=== PATIENT | male | born 1955 | race Caucasian/White ===

== ENCOUNTER 2019-06-22 10:38 | Inpatient (IN) | payer OTHER ==
[~2019-06-22] VITALS: Ht 182.9 cm; Wt 74.3 kg
--- NOTE | 2019-06-22 10:57 | NUR ---
david. report received from [facility]. pt c/o all qudrants abd pain with nausea x 4 days. 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 denies cp/sob. no cardiac hx. pt's aox4. resps even and unlabored. all monitors in place. clal light within reach. edmd at bedside to evaluate at this time. ekg done at bedside by emt.
--- NOTE | 2019-06-22 10:58 | NUR ---
pt to xray at this time.
--- NOTE | 2019-06-22 10:59 | NUR ---
pt refused medications at this time.
[2019-06-22] MEDS ORDERED: ONDANSETRON 2MG/ML, 2ML IVPush ONE (11:00)
[2019-06-22] MEDS ORDERED: SODIUM CHLORIDE FLUSH 10ML SYR IVF ONE (11:00)
--- NOTE | 2019-06-22 11:02 | NUR ---
iso cart placed d/t loose stool per pt.
[2019-06-22] MEDS: HYDROmorphone 2 MG/ML, 1ML IVPush PRN ×3 (11:08→18:35)
--- NOTE | 2019-06-22 11:08 | NUR ---
pt back to room from xray at this time.
--- NOTE | 2019-06-22 11:15 | NUR ---
urinal at bedside. pt awares of ua.
--- NOTE | 2019-06-22 11:29 | NUR ---
pt states"i can't pee now. i'll try one more time later." urinal at bedside.
[2019-06-22 11:34] LABS: MEAN CORPUSCULAR HEMOGLOBIN 30.8 pg (27.5-34.5); MEAN CORPUSCULAR VOLUME 93.3 fL (81-97); MEAN PLATELET VOLUME 7.3 fL (7.4-10.4); PLATELET COUNT 342 x10^3/uL (130-400); RED BLOOD COUNT 5.28 x10^6/uL (4.38-5.82); RED CELL DISTRIBUTION WIDTH 14.4 % (9.4-14.8)
[2019-06-22 11:38] LABS: ALANINE AMINOTRANSFERASE 15 U/L (12-78); ALBUMIN 3.3 g/dL (3.4-5.0); ANION GAP 9 mmol/L (5-15); CALCIUM 9.1 mg/dL (8.5-10.1); CHLORIDE 100 mmol/L (98-107); CREATININE 1.41 mg/dL (0.7-1.3)
[2019-06-22 11:43] LABS: ALKALINE PHOSPHATASE 80 U/L (45-117); BILIRUBIN,TOTAL 0.7 mg/dL (0.2-1.0); TOTAL PROTEIN 7.7 g/dL (6.4-8.2); TROPONIN I < 0.015 ng/mL (0.000-0.045)
--- NOTE | 2019-06-22 11:48 | NUR ---
pt resting in [facility]. pt's aox4. resps even and unlabored. all monitors in place. call light within reach.
--- NOTE | 2019-06-22 11:51 | NUR ---
CT ON HOLD FOR CODE NEURO PATIENT
--- NOTE | 2019-06-22 12:23 | NUR ---
pt provided urine sample at this time. ua sent.
[2019-06-22 12:42] LABS: BASOPHILS % (AUTO) 0 % (0-1); EOSINOPHILS # (AUTO) 0.02 x10^3/uL (0-0.4); EOSINOPHILS % (AUTO) 0 % (1-7); LYMPHOCYTES # (AUTO) 0.37 x10^3/uL (1-3.4); LYMPHOCYTES % (AUTO) 2 % (22-44); MD SCAN; MONOCYTES # (AUTO) 0.78 x10^3/uL (0.2-0.8); MONOCYTES % (AUTO) 5 % (2-9); NEUTROPHILS # (AUTO) 15.77 x10^3/uL (1.8-6.8); NEUTROPHILS % (AUTO) 93 % (42-75)
[2019-06-22 12:44] LABS: CULTURE INDICATED? YES; MICROSCOPIC INDICATED
--- NOTE | 2019-06-22 13:06 | NUR ---
pt resting in [facility]. pt's aox4. resps even and unlabored. all monitors in place. call light within reach.
--- NOTE | 2019-06-22 13:22 | NUR ---
TASK RN: PT SITTING UP IN [employer] [employer] NOTED. PWD. DENIES PAIN/NAUSEA OR NEEDS BP/SPO2/ECG MONITORING IN PLACE. SINUS TACH ON MONITOR. PT TO CT AT THIS TIME.
--- NOTE | 2019-06-22 13:44 | NUR ---
IV INFILTRATED- SENT BACK TO ER FOR NEW IV
--- NOTE | 2019-06-22 13:47 | NUR ---
TASK RN: PT RETURNED FROM CT. UNABLE TO COMPLETE SCAN PIV INFILTRATED. PRIMARY RN AWARE.
--- NOTE | 2019-06-22 13:56 | NUR ---
new piv est on l ac. pt tolerated well.
[2019-06-22] MEDS ORDERED: HYDROmorphone 2 MG/ML, 1ML ONE (13:59)
--- NOTE | 2019-06-22 14:04 | NUR ---
pt requesting pain med at this time. pt medicated per emar. pt tolerated well.
--- NOTE | 2019-06-22 14:25 | NUR ---
PT TO CT AT THIS TIME.
--- NOTE | 2019-06-22 14:41 | NUR ---
PT BACK TO ROOM FROM CT AT THIS TIME.
[2019-06-22] MEDS ORDERED: METRONIDAZOLE PMX 500MG/100ML 100 ML IVPB ONE (15:00)
[2019-06-22] MEDS ORDERED: CEFOTETAN PMX 1GM/50ML 50 ML IV ONE ×2 (15:00→16:00)
[2019-06-22] MEDS ORDERED: CEFOTETAN PMX 1GM/50ML 50 ML ONE (15:14)
[2019-06-22] MEDS ORDERED: METRONIDAZOLE PMX 500MG/100ML 100 ML ONE (15:14)
[2019-06-22] MEDS ORDERED: SODIUM CHLORIDE 0.9% 1,000 ML IV ONE (15:23)
--- NOTE | 2019-06-22 15:23 | NUR ---
abx infusing at this time after blood culture x 2 times. pt tolerated well.
--- NOTE | 2019-06-22 15:24 | NUR ---
hospitalist at bedside at this time.
[2019-06-22] MEDS ORDERED: SODIUM CHLORIDE 0.9% 1,000ML IVBOLUS ONE ×2 (15:30→16:00)
--- NOTE | 2019-06-22 15:32 | NUR ---
NS INFUSING AT THIS TIME. PT TOLERATED WELL.
[2019-06-22] MEDS ORDERED: ONDANSETRON 2MG/ML, 2ML IVPush PRN (16:00)
[2019-06-22] MEDS ORDERED: SODIUM CHLORIDE FLUSH 10ML SYR IVF PRN (16:00)
[2019-06-22] MEDS ORDERED: hydrALAzine 20 MG/ML, 1ML IVPush PRN (16:00)
[2019-06-22] MEDS ORDERED: OMNIPAQUE 350 MG/ML, 100ML BOTTLE ONE (16:43)
--- NOTE | 2019-06-22 16:50 | NUR ---
report given to lucien desai. all questions answered.
--- NOTE | 2019-06-22 16:58 | NUR ---
2nd ns bolus and 2nd abx infusing at this time. pt tolerated well.
[2019-06-22 19:24] VITALS: BP 156/86
[2019-06-22 19:55] VITALS: BP 96/70
[2019-06-22] MEDS: SODIUM CHLORIDE 0.9% 1,000 ML IV SCH (23:36)
[2019-06-23] MEDS: METRONIDAZOLE PMX 500MG/100ML 100 ML IV SCH ×5 (00:33→22:03)
[2019-06-23] MEDS: SODIUM CHLORIDE 0.9% 1,000 ML IV SCH ×2 (00:34→09:33)
[2019-06-23 01:35] VITALS: BP 134/79
[2019-06-23] MEDS: HYDROmorphone 2 MG/ML, 1ML IVPush PRN ×4 (02:55→17:40)
[2019-06-23] MEDS: ONDANSETRON ODT 4 MG PO PRN ×2 (03:01→10:10)
[2019-06-23] MEDS: CEFOTETAN PMX 2GM/50ML 50 ML IV SCH ×2 (04:32→16:47)
[2019-06-23 06:55] LABS: BASOPHILS % (AUTO) 0 % (0-1); EOSINOPHILS # (AUTO) 0.06 x10^3/uL (0-0.4); EOSINOPHILS % (AUTO) 0 % (1-7); LYMPHOCYTES # (AUTO) 0.58 x10^3/uL (1-3.4); LYMPHOCYTES % (AUTO) 4 % (22-44); MD NO; MEAN CORPUSCULAR HEMOGLOBIN 30.9 pg (27.5-34.5); MEAN CORPUSCULAR HGB CONC 33.4 g/dL (33.2-36.2); MEAN CORPUSCULAR VOLUME 92.6 fL (81-97); MEAN PLATELET VOLUME 7.4 fL (7.4-10.4); MONOCYTES # (AUTO) 0.91 x10^3/uL (0.2-0.8); MONOCYTES % (AUTO) 6 % (2-9); NEUTROPHILS # (AUTO) 12.91 x10^3/uL (1.8-6.8); NEUTROPHILS % (AUTO) 89 % (42-75); PLATELET COUNT 317 x10^3/uL (130-400); RED BLOOD COUNT 4.37 x10^6/uL (4.38-5.82); RED CELL DISTRIBUTION WIDTH 14.5 % (9.4-14.8)
[2019-06-23 07:03] LABS: ANION GAP 9 mmol/L (5-15); CALCIUM 8.2 mg/dL (8.5-10.1); CHLORIDE 106 mmol/L (98-107); CREATININE 1.48 mg/dL (0.7-1.3)
[2019-06-23 08:30] VITALS: BP 124/76
[2019-06-23] MEDS: NICOTINE 14MG/24 HR PATCH.TD24 TD SCH (09:34)
[2019-06-23] MEDS ORDERED: ROCURONIUM 10MG/ML,5ML ONE (10:24)
[2019-06-23] MEDS ORDERED: PROPOFOL 10 MG/ML, 20ML ONE (10:24)
[2019-06-23] MEDS ORDERED: METOPROLOL 1 MG/ML, 5ML ONE (10:24)
[2019-06-23] MEDS ORDERED: ONDANSETRON 2MG/ML, 2ML ONE (10:24)
[2019-06-23] MEDS ORDERED: DEXAMETHASONE 4 MG/ML, 1ML ONE (10:24)
[2019-06-23 14:40] VITALS: BP 145/86
[2019-06-23 17:37] VITALS: BP 153/93
[2019-06-23] MEDS ORDERED: BUPIVACAINE/PF-EPI 0.5% 1:200K ONE (18:48)
[2019-06-23 19:02] VITALS: BP 133/77
[2019-06-23] MEDS ORDERED: FENTANYL PF 250 MCG/5ML ONE (19:11)
[2019-06-23] MEDS ORDERED: MIDAZOLAM 1 MG/ML, 2ML ONE (19:11)
[2019-06-23] MEDS ORDERED: FENTANYL PF 100 MCG/2ML IV PRN (19:30)
[2019-06-23] MEDS ORDERED: OXYcodone 5 MG/5 ML ORAL.SOL UDC PO PRN (19:30)
[2019-06-23] MEDS ORDERED: HALOPERIDOL 5 MG/ML IV PRN (19:30)
[2019-06-23] MEDS ORDERED: MEPERIDINE/PF 25MG/ML,1ML IVPush PRN (19:30)
[2019-06-23] MEDS ORDERED: HYDROmorphone 2 MG/ML, 1ML IVPush PRN (19:30)
[2019-06-23] MEDS ORDERED: ALBUTEROL/IPRATROPIUM 2.5MG/0.5MG, 3 ML NPPB PRN (19:30)
[2019-06-23] MEDS ORDERED: hydrALAzine 20 MG/ML, 1ML IV PRN (19:30)
[2019-06-23] MEDS ORDERED: MEPERIDINE/PF 50 MG/ML ONE (20:10)
[2019-06-23 21:44] VITALS: BP 121/78
[2019-06-24] VITALS (7 sets, daily range): BP systolic 123–154; BP diastolic 72–97
[2019-06-24] MEDS: SODIUM CHLORIDE 0.9% 1,000 ML IV SCH ×3 (01:30→15:28)
[2019-06-24] MEDS: METRONIDAZOLE PMX 500MG/100ML 100 ML IV SCH ×4 (03:30→22:13)
[2019-06-24] MEDS: CEFOTETAN PMX 2GM/50ML 50 ML IV SCH ×2 (04:48→17:16)
[2019-06-24] MEDS: HYDROmorphone 2 MG/ML, 1ML IVPush PRN ×3 (05:03→21:40)
[2019-06-24 08:04] LABS: BASOPHILS % (AUTO) 0 % (0-1); EOSINOPHILS % (AUTO) 0 % (1-7); LYMPHOCYTES # (AUTO) 0.32 x10^3/uL (1-3.4); LYMPHOCYTES % (AUTO) 3 % (22-44); MD NO; MEAN CORPUSCULAR HEMOGLOBIN 30.9 pg (27.5-34.5); MEAN CORPUSCULAR VOLUME 93.9 fL (81-97); MEAN PLATELET VOLUME 7.3 fL (7.4-10.4); MONOCYTES # (AUTO) 0.58 x10^3/uL (0.2-0.8); MONOCYTES % (AUTO) 5 % (2-9); NEUTROPHILS # (AUTO) 11.26 x10^3/uL (1.8-6.8); NEUTROPHILS % (AUTO) 93 % (42-75); PLATELET COUNT 361 x10^3/uL (130-400); RED BLOOD COUNT 4.79 x10^6/uL (4.38-5.82); RED CELL DISTRIBUTION WIDTH 14.9 % (9.4-14.8)
[2019-06-24 08:56] LABS: ANION GAP 7 mmol/L (5-15); CALCIUM 8.2 mg/dL (8.5-10.1); CHLORIDE 106 mmol/L (98-107); CREATININE 1.42 mg/dL (0.7-1.3)
[2019-06-24] MEDS: NICOTINE 14MG/24 HR PATCH.TD24 TD SCH (09:59)
[2019-06-24] MEDS ORDERED: SODIUM CHLORIDE 0.9%, 500ML IVBOLUS ONE (11:30)
[2019-06-24] MEDS ORDERED: PHARMACY MAY ADJ FOR RENAL FX MC PRN ×2 (14:30)
[2019-06-24] MEDS ORDERED: TEMAZEPAM 15 MG CAPSULE PO PRN (17:00)
[2019-06-24] MEDS ORDERED: LORazepam 2 MG/ML, 1ML ONE (17:36)
[2019-06-24] MEDS: LORazepam 2 MG/ML, 1ML IVPush PRN (17:43)
[2019-06-25] VITALS (7 sets, daily range): BP systolic 116–158; BP diastolic 72–89
[2019-06-25] MEDS: SODIUM CHLORIDE 0.9% 1,000 ML IV SCH ×3 (00:33→17:21)
[2019-06-25] MEDS: LORazepam 2 MG/ML, 1ML IVPush PRN (00:44)
[2019-06-25] MEDS: METRONIDAZOLE PMX 500MG/100ML 100 ML IV SCH ×4 (04:01→22:14)
[2019-06-25] MEDS: CEFOTETAN PMX 2GM/50ML 50 ML IV SCH ×2 (05:31→17:21)
[2019-06-25] MEDS: HYDROmorphone 2 MG/ML, 1ML IVPush PRN ×4 (06:19→21:02)
[2019-06-25 07:22] LABS: ANION GAP 8 mmol/L (5-15); CALCIUM 8.1 mg/dL (8.5-10.1); CHLORIDE 107 mmol/L (98-107); CREATININE 1.36 mg/dL (0.7-1.3)
[2019-06-25 07:27] LABS: BASOPHILS # (AUTO) 0.01 x10^3/uL (0-0.1); BASOPHILS % (AUTO) 0 % (0-1); EOSINOPHILS # (AUTO) 0.03 x10^3/uL (0-0.4); EOSINOPHILS % (AUTO) 0 % (1-7); LYMPHOCYTES # (AUTO) 0.53 x10^3/uL (1-3.4); LYMPHOCYTES % (AUTO) 4 % (22-44); MD NO; MEAN CORPUSCULAR HEMOGLOBIN 30.8 pg (27.5-34.5); MEAN CORPUSCULAR HGB CONC 33.2 g/dL (33.2-36.2); MEAN CORPUSCULAR VOLUME 92.9 fL (81-97); MEAN PLATELET VOLUME 6.8 fL (7.4-10.4); MONOCYTES # (AUTO) 0.84 x10^3/uL (0.2-0.8); MONOCYTES % (AUTO) 6 % (2-9); NEUTROPHILS # (AUTO) 11.97 x10^3/uL (1.8-6.8); NEUTROPHILS % (AUTO) 90 % (42-75); PLATELET COUNT 414 x10^3/uL (130-400); RED BLOOD COUNT 4.42 x10^6/uL (4.38-5.82); RED CELL DISTRIBUTION WIDTH 14.6 % (9.4-14.8)
[2019-06-25] MEDS: NICOTINE 14MG/24 HR PATCH.TD24 TD SCH (09:15)
[2019-06-25 18:08] LABS: AMPHETAMINE SCREEN, URINE Positive (Negative); BARBITURATE SCREEN, URINE Negative (Negative); BENZODIAZEPINE SCREEN, URINE Negative (Negative); CANNABINOID SCREEN, URINE Positive (Negative); COCAINE SCREEN, URINE Negative (Negative); METHADONE SCREEN, URINE Negative (Negative); OPIATE SCREEN, URINE Positive (Negative)
[2019-06-25 21:23] LABS: CLOSTRIDIUM DIFFICILE ANTIGEN NEGATIVE; CLOSTRIDIUM DIFFICILE TOXIN NEGATIVE (Negative)
[2019-06-26] MEDS: HYDROmorphone 2 MG/ML, 1ML IVPush PRN ×5 (01:08→22:27)
[2019-06-26] MEDS: SODIUM CHLORIDE 0.9% 1,000 ML IV SCH ×3 (01:10→17:30)
[2019-06-26 01:13] VITALS: BP 142/76
[2019-06-26] MEDS: METRONIDAZOLE PMX 500MG/100ML 100 ML IV SCH ×4 (04:14→22:05)
[2019-06-26] MEDS: CEFOTETAN PMX 2GM/50ML 50 ML IV SCH ×2 (05:27→17:29)
[2019-06-26 06:33] LABS: BASOPHILS # (AUTO) 0.01 x10^3/uL (0-0.1); BASOPHILS % (AUTO) 0 % (0-1); EOSINOPHILS # (AUTO) 0.19 x10^3/uL (0-0.4); EOSINOPHILS % (AUTO) 1 % (1-7); LYMPHOCYTES # (AUTO) 0.79 x10^3/uL (1-3.4); LYMPHOCYTES % (AUTO) 6 % (22-44); MD NO; MEAN CORPUSCULAR HEMOGLOBIN 30.5 pg (27.5-34.5); MEAN CORPUSCULAR HGB CONC 33.2 g/dL (33.2-36.2); MEAN CORPUSCULAR VOLUME 91.8 fL (81-97); MEAN PLATELET VOLUME 6.7 fL (7.4-10.4); MONOCYTES # (AUTO) 0.91 x10^3/uL (0.2-0.8); MONOCYTES % (AUTO) 7 % (2-9); NEUTROPHILS # (AUTO) 12.06 x10^3/uL (1.8-6.8); NEUTROPHILS % (AUTO) 86 % (42-75); PLATELET COUNT 411 x10^3/uL (130-400); RED BLOOD COUNT 4.39 x10^6/uL (4.38-5.82); RED CELL DISTRIBUTION WIDTH 14.7 % (9.4-14.8)
[2019-06-26 06:41] LABS: ALBUMIN 1.9 g/dL (3.4-5.0); ANION GAP 7 mmol/L (5-15); CALCIUM 7.7 mg/dL (8.5-10.1); CHLORIDE 106 mmol/L (98-107)
[2019-06-26 06:46] LABS: ALANINE AMINOTRANSFERASE 9 U/L (12-78); ALKALINE PHOSPHATASE 46 U/L (45-117); BILIRUBIN,TOTAL 0.4 mg/dL (0.2-1.0); CREATININE 1.11 mg/dL (0.7-1.3); TOTAL PROTEIN 5.2 g/dL (6.4-8.2)
[2019-06-26 07:06] VITALS: BP 129/75
[2019-06-26] MEDS: NEUTRA PHOS K 250 MG TABLET PO SCH ×3 (10:24→20:03)
[2019-06-26 12:13] VITALS: BP 161/92
[2019-06-26 19:43] VITALS: BP 166/110
[2019-06-26] MEDS: LORazepam 2 MG/ML, 1ML IVPush PRN (20:04)
[2019-06-26 20:08] VITALS: BP 165/92
[2019-06-27 00:07] VITALS: BP 143/85
[2019-06-27] MEDS: SODIUM CHLORIDE 0.9% 1,000 ML IV SCH ×3 (02:16→18:49)
[2019-06-27] MEDS: HYDROmorphone 2 MG/ML, 1ML IVPush PRN ×2 (02:52→09:50)
[2019-06-27] MEDS: METRONIDAZOLE PMX 500MG/100ML 100 ML IV SCH ×4 (04:09→22:09)
[2019-06-27] MEDS: CEFOTETAN PMX 2GM/50ML 50 ML IV SCH (05:22)
[2019-06-27] MEDS: LORazepam 2 MG/ML, 1ML IVPush PRN ×2 (05:22→14:53)
[2019-06-27 07:48] VITALS: BP 148/89
[2019-06-27] MEDS: NEUTRA PHOS K 250 MG TABLET PO SCH ×3 (09:50→20:14)
[2019-06-27] MEDS: FLUCONAZOLE 100 MG TABLET PO SCH (11:07)
[2019-06-27 14:42] VITALS: BP 157/94
[2019-06-27] MEDS: CEFTAZIDIME PMX 2 GM/50ML 50 ML IV SCH (18:15)
[2019-06-27] MEDS: OXYcodone IR 5MG TABLET PO PRN (18:49)
[2019-06-27 20:02] VITALS: BP 168/87
[2019-06-28] MEDS: CEFTAZIDIME PMX 2 GM/50ML 50 ML IV SCH ×2 (00:18→08:30)
[2019-06-28] MEDS: OXYcodone IR 5MG TABLET PO PRN ×2 (00:18→05:51)
[2019-06-28 02:31] VITALS: BP 145/82
[2019-06-28] MEDS: METRONIDAZOLE PMX 500MG/100ML 100 ML IV SCH ×2 (04:12→10:25)
[2019-06-28 06:23] LABS: BASOPHILS # (AUTO) 0.02 x10^3/uL (0-0.1); BASOPHILS % (AUTO) 0 % (0-1); EOSINOPHILS # (AUTO) 0.14 x10^3/uL (0-0.4); EOSINOPHILS % (AUTO) 1 % (1-7); LYMPHOCYTES # (AUTO) 0.87 x10^3/uL (1-3.4); LYMPHOCYTES % (AUTO) 7 % (22-44); MD NO; MEAN CORPUSCULAR HEMOGLOBIN 30.4 pg (27.5-34.5); MEAN CORPUSCULAR HGB CONC 33.3 g/dL (33.2-36.2); MEAN CORPUSCULAR VOLUME 91.4 fL (81-97); MEAN PLATELET VOLUME 6.6 fL (7.4-10.4); MONOCYTES # (AUTO) 1.04 x10^3/uL (0.2-0.8); MONOCYTES % (AUTO) 8 % (2-9); NEUTROPHILS # (AUTO) 10.89 x10^3/uL (1.8-6.8); NEUTROPHILS % (AUTO) 84 % (42-75); PLATELET COUNT 417 x10^3/uL (130-400); RED CELL DISTRIBUTION WIDTH 14.4 % (9.4-14.8)
[2019-06-28 06:31] LABS: ANION GAP 7 mmol/L (5-15); CALCIUM 7.6 mg/dL (8.5-10.1); CHLORIDE 105 mmol/L (98-107)
[2019-06-28] MEDS: SODIUM CHLORIDE 0.9% 1,000 ML IV SCH (06:40)
[2019-06-28] MEDS: FLUCONAZOLE 100 MG TABLET PO SCH (08:30)
[2019-06-28] MEDS: NEUTRA PHOS K 250 MG TABLET PO SCH (08:30)
[2019-06-28 08:34] VITALS: BP 163/90
[2019-06-28] MEDS ORDERED: MULTIVITS,STRESS FORMULA 1 TABLET PO SCH (09:30)
[2019-06-28] MEDS ORDERED: MAGNESIUM SULFATE PMX 2GM/50ML 50 ML IV ONE (09:30)
[2019-06-28] MEDS ORDERED: CALCIUM GLUCONATE 4.6 MEQ in SODIUM CHLORIDE 0.9% 100 ML IV ONE (10:00)
[2019-06-28] MEDS ORDERED: POTASSIUM CHLORIDE 20 MEQ in SODIUM CHLORIDE 0.9% 250 ML IV ONE (10:00)
[2019-06-28] MEDS ORDERED: POTASSIUM PHOSPHATE 44 MEQ in SODIUM CHLORIDE 0.9% 500 ML IV ONE (10:00)
[2019-06-28] MEDS ORDERED: TRAM50TA2 PO (11:26)
[2019-06-28] MEDS ORDERED: AMOX1TAB64 PO (11:26)
[2019-06-28] MEDS ORDERED: METR500T PO (11:26)
[2019-06-28] MEDS ORDERED: ASCO500T6 PO (11:26)
[2019-06-28] MEDS ORDERED: FLUC100T PO (11:26)
[2019-06-28] MEDS ORDERED: MULT1TAB76 PO (11:26)
[2019-06-28] MEDS ORDERED: CHOLECALCIFEROL 400 UNITS/ML ORAL SOL PO SCH (16:30)
[2019-06-28] MEDS ORDERED: ASCORBIC ACID 500 MG TABLET PO SCH (17:00)
== END 2019-06-28 15:57 | disposition home or self-care (01) | DRG 853 ==
LOC: SUATTDRO 15:19 → ED 18:08 → EDIP 18:16 → 4WST 18:29
PROVIDERS: ADMIT Hospitalist; ATTEND Family Medicine
PROC: 0D9840Z Drainage of Small Intestine with Drainage Device, Percutaneous Endoscopic Approach (ICD-10-PCS; principal; 2019-06-23 19:30)
DX: A41.9 Sepsis, unspecified organism (principal); K65.0 Generalized (acute) peritonitis; N17.0 Acute kidney failure with tubular necrosis; I47.1 Supraventricular tachycardia; K56.51 Intestinal adhesions [bands], with partial obstruction; K57.20 Diverticulitis of large intestine with perforation and abscess without bleeding; D64.9 Anemia, unspecified; E86.0 Dehydration; F12.90 Cannabis use, unspecified, uncomplicated; F17.200 Nicotine dependence, unspecified, uncomplicated; F41.9 Anxiety disorder, unspecified; K86.89 Other specified diseases of pancreas
CPT/HCPCS: 36415; 71046; 74018; 74177; 80048; 80053; 80307; 81001; 83605; 83690; 83735; 84100; 84443; 84484; 85025; 87040; 87070; 87075; 87077; 87086; 87186; 87205; 87324; 93005; 93306; 93356; 96365; 96375; G0378; J0610; J1100; J1170; J2175; J2250; J2405; J2704; J3010; Q0162; Q9967; J0713; J2060; J3490; J7030; J7040

== ENCOUNTER 2019-07-01 14:59 | Inpatient (IN) | payer SELFPAY ==
[~2019-07-01] VITALS: Ht 182.9 cm; Wt 65.6 kg
[~2019-07-01 14:59] MED LIST: AMOX1TAB64 PO; ASCO500T6 PO; FLUC100T PO; METR500T PO; MULT1TAB76 PO; TRAM50TA2 PO
--- NOTE | 2019-07-01 15:15 | NUR ---
PT BIB [facility], PT WITH C/O SUDDEN ONSET OF STABBING ABD PAIN. PT DENIES NAUSEA/VOMITTING, LBM TODAY 06/30. PT WITH BOWEL PERF REPAIR 06/22. PT TO BP, CONT PULSE OX.
[2019-07-01] MEDS ORDERED: SODIUM CHLORIDE FLUSH 10ML SYR IVF ONE (15:30)
[2019-07-01] MEDS ORDERED: ONDANSETRON 2MG/ML, 2ML IVPush ONE (15:30)
[2019-07-01] MEDS ORDERED: HYDROmorphone 2 MG/ML, 1ML IVPush PRN ×2 (15:30→18:00)
[2019-07-01] MEDS ORDERED: SODIUM CHLORIDE 0.9% 1,000ML IVBOLUS ONE (15:30)
[2019-07-01] MEDS ORDERED: ONDANSETRON 2MG/ML, 2ML ONE (15:37)
[2019-07-01] MEDS ORDERED: HYDROmorphone 1 MG/ML, 1ML INJ ONE ×2 (15:37→18:09)
[2019-07-01 15:53] LABS: ALANINE AMINOTRANSFERASE 11 U/L (12-78); ALBUMIN 2.1 g/dL (3.4-5.0); ANION GAP 7 mmol/L (5-15); CALCIUM 8.1 mg/dL (8.5-10.1); CHLORIDE 106 mmol/L (98-107); CREATININE 0.86 mg/dL (0.7-1.3)
[2019-07-01 15:56] LABS: ALKALINE PHOSPHATASE 45 U/L (45-117); BILIRUBIN,TOTAL < 0.1 mg/dL (0.2-1.0)
[2019-07-01 16:03] LABS: MD YES; MEAN CORPUSCULAR HEMOGLOBIN 30.5 pg (27.5-34.5); MEAN CORPUSCULAR HGB CONC 33.4 g/dL (33.2-36.2); MEAN CORPUSCULAR VOLUME 91.2 fL (81-97); MEAN PLATELET VOLUME 6.7 fL (7.4-10.4); PLATELET COUNT 647 x10^3/uL (130-400); RED BLOOD COUNT 4.16 x10^6/uL (4.38-5.82); RED CELL DISTRIBUTION WIDTH 14.4 % (9.4-14.8)
--- NOTE | 2019-07-01 16:15 | NUR ---
PT TO CT AT THIS TIME
[2019-07-01 16:19] LABS: LYMPH#(MANUAL) 0.65 x10^3/uL (1-3.4); LYMPHS% (MANUAL) 4 % (22-44); MONOS% (MANUAL) 8 % (2-9); SEG#(MANUAL) 14.34 x10^3/uL (1.8-6.8); SEGS% (MANUAL) 88 % (42-75)
[2019-07-01 16:20] LABS: <PLATELET ESTIMATE> INCREASED; <RBC MORPHOLOGY> NORMAL; SMALL PLATELETS 1+
[2019-07-01] MEDS ORDERED: OMNIPAQUE 350 MG/ML, 100ML BOTTLE ONE (16:32)
--- NOTE | 2019-07-01 17:12 | NUR ---
THROUGH PUT RN: PAGED DR. RICHTER PER ED MD REQUEST.
[2019-07-01] MEDS ORDERED: PIPERACILLIN/TAZO/PMX 3.375GM 50 ML IV ONE (17:30)
--- NOTE | 2019-07-01 17:49 | NUR ---
VERIFIED WITH KIANNA, OK TO TO HANG ABX, NO NEED FOR BC
[2019-07-01] MEDS ORDERED: PIPERACILLIN/TAZO/PMX 3.375GM 50 ML ONE (17:55)
[2019-07-01] MEDS ORDERED: METRONIDAZOLE PMX 500MG/100ML 100 ML IV SCH (18:00)
--- NOTE | 2019-07-01 18:04 | NUR ---
ADMITTING MD AT BEDSIDE, GIVEN OK FOR SMALL AMOUNT OF ICECHIPS. VSS
[2019-07-01] MEDS: FLUCONAZOLE 100MG/50ML 100 MG in BAG 1 EACH IV SCH (19:00)
[2019-07-01] MEDS: POTASSIUM CHLORIDE 20 MEQ in LACTATED RINGERS 1,000 ML IV SCH (19:07)
--- NOTE | 2019-07-01 19:08 | NUR ---
REPORT RECEIVED FROM BRANDO BEAN. PLAN OF CARE DISCUSSED
[2019-07-01] MEDS ORDERED: METRONIDAZOLE PMX 500MG/100ML 100 ML ONE (19:18)
[2019-07-01] MEDS ORDERED: HYDROmorphone 1 MG/ML, 1ML INJ IVPush PRN (19:30)
[2019-07-01] MEDS ORDERED: PROMETHAZINE 25 MG/ML, 1ML IM PRN (19:30)
[2019-07-01] MEDS ORDERED: SODIUM CHLORIDE FLUSH 10ML SYR IVF PRN (19:30)
[2019-07-01] MEDS ORDERED: hydrALAzine 20 MG/ML, 1ML IVPush PRN (19:30)
[2019-07-01] MEDS ORDERED: ACETAMINOPHEN 325 MG TABLET PO PRN (19:30)
[2019-07-01] MEDS ORDERED: ONDANSETRON 2MG/ML, 2ML IVPush PRN (19:30)
[2019-07-01] MEDS ORDERED: DOCUSATE 100 MG CAPSULE PO PRN (19:30)
[2019-07-01] MEDS ORDERED: LIDODERM 5% PATCH TD PRN (19:30)
--- NOTE | 2019-07-01 19:30 | NUR ---
IV FLAGYL STARTED AT THIS TIME
--- NOTE | 2019-07-01 20:32 | NUR ---
ATTEMPTED TO CALL REPORT X1
--- NOTE | 2019-07-01 20:45 | NUR ---
REPORT GIVEN TO BRANDO TEE. PLAN OF CARE DISCUSSED
[2019-07-01 21:00] VITALS: BP 153/87
[2019-07-01] MEDS: HYDROmorphone 2 MG/ML, 1ML IVPush PRN (21:05)
[2019-07-02] MEDS: HYDROmorphone 2 MG/ML, 1ML IVPush PRN ×4 (00:07→13:19)
[2019-07-02] MEDS: PIPERACILLIN/TAZO/PMX 3.375GM 50 ML IV SCH ×4 (00:11→17:25)
[2019-07-02] MEDS: METRONIDAZOLE PMX 500MG/100ML 100 ML IV SCH ×4 (01:01→19:59)
[2019-07-02] MEDS: POTASSIUM CHLORIDE 20 MEQ in LACTATED RINGERS 1,000 ML IV SCH (01:14)
[2019-07-02 01:40] VITALS: BP 145/88
[2019-07-02 02:56] VITALS: BP 150/88
[2019-07-02 05:49] LABS: ANION GAP 4 mmol/L (5-15); CALCIUM 7.7 mg/dL (8.5-10.1); CHLORIDE 107 mmol/L (98-107)
[2019-07-02 05:50] LABS: MEAN CORPUSCULAR HEMOGLOBIN 30.6 pg (27.5-34.5); PLATELET COUNT 667 x10^3/uL (130-400); RED BLOOD COUNT 4.09 x10^6/uL (4.38-5.82); RED CELL DISTRIBUTION WIDTH 14.7 % (9.4-14.8)
[2019-07-02 06:47] LABS: BASOPHILS # (AUTO) 0.01 x10^3/uL (0-0.1); BASOPHILS % (AUTO) 0 % (0-1); EOSINOPHILS # (AUTO) 0.04 x10^3/uL (0-0.4); EOSINOPHILS % (AUTO) 0 % (1-7); LYMPHOCYTES # (AUTO) 0.69 x10^3/uL (1-3.4); LYMPHOCYTES % (AUTO) 3 % (22-44); MD SCAN; MONOCYTES # (AUTO) 1.07 x10^3/uL (0.2-0.8); MONOCYTES % (AUTO) 5 % (2-9); NEUTROPHILS # (AUTO) 20.36 x10^3/uL (1.8-6.8); NEUTROPHILS % (AUTO) 92 % (42-75)
[2019-07-02 07:05] VITALS: BP 119/78
[2019-07-02 14:11] VITALS: BP 125/78
[2019-07-02 19:19] VITALS: BP 153/90
[2019-07-02] MEDS: TEMAZEPAM 15 MG CAPSULE PO PRN (19:59)
[2019-07-02] MEDS: FLUCONAZOLE 100MG/50ML 100 MG in BAG 1 EACH IV SCH (21:05)
[2019-07-03] MEDS: PIPERACILLIN/TAZO/PMX 3.375GM 50 ML IV SCH ×4 (00:35→19:51)
[2019-07-03 01:21] VITALS: BP 144/84
[2019-07-03] MEDS: METRONIDAZOLE PMX 500MG/100ML 100 ML IV SCH ×3 (02:01→17:32)
[2019-07-03 05:32] LABS: ANION GAP 4 mmol/L (5-15); CALCIUM 8.3 mg/dL (8.5-10.1); CHLORIDE 105 mmol/L (98-107)
[2019-07-03 05:54] LABS: BASOPHILS # (AUTO) 0.03 x10^3/uL (0-0.1); BASOPHILS % (AUTO) 0 % (0-1); EOSINOPHILS # (AUTO) 0.14 x10^3/uL (0-0.4); EOSINOPHILS % (AUTO) 1 % (1-7); LYMPHOCYTES # (AUTO) 1.04 x10^3/uL (1-3.4); LYMPHOCYTES % (AUTO) 9 % (22-44); MD NO; MEAN CORPUSCULAR HEMOGLOBIN 30.4 pg (27.5-34.5); MEAN CORPUSCULAR HGB CONC 33.3 g/dL (33.2-36.2); MEAN CORPUSCULAR VOLUME 91.3 fL (81-97); MEAN PLATELET VOLUME 6.7 fL (7.4-10.4); MONOCYTES # (AUTO) 1.05 x10^3/uL (0.2-0.8); MONOCYTES % (AUTO) 9 % (2-9); NEUTROPHILS % (AUTO) 81 % (42-75); PLATELET COUNT 734 x10^3/uL (130-400); RED BLOOD COUNT 3.75 x10^6/uL (4.38-5.82); RED CELL DISTRIBUTION WIDTH 14.6 % (9.4-14.8)
[2019-07-03] MEDS ORDERED: MIDAZOLAM 1 MG/ML, 2ML ONE (07:25)
[2019-07-03] MEDS ORDERED: FENTANYL PF 250 MCG/5ML ONE (07:26)
[2019-07-03] MEDS ORDERED: PHENYLEPHRINE 10 MG/ML ONE (07:40)
[2019-07-03] MEDS ORDERED: ALBUTEROL/IPRATROPIUM 2.5MG/0.5MG, 3 ML NPPB PRN (08:30)
[2019-07-03] MEDS ORDERED: MEPERIDINE/PF 25MG/ML,1ML IVPush PRN (08:30)
[2019-07-03] MEDS ORDERED: DIAZEPAM 5 MG/ML, 2ML IVPush PRN (08:30)
[2019-07-03] MEDS ORDERED: PROMETHAZINE 25 MG/ML, 1ML IV PRN (08:30)
[2019-07-03] MEDS ORDERED: METOPROLOL 1 MG/ML, 5ML IV PRN (08:30)
[2019-07-03] MEDS ORDERED: MIDAZOLAM 1 MG/ML, 2ML IV PRN (08:30)
[2019-07-03] MEDS ORDERED: hydrALAzine 20 MG/ML, 1ML IV PRN (08:30)
[2019-07-03] MEDS ORDERED: GLYCOPYRROLATE 0.2MG/1ML, 5ML ONE (08:56)
[2019-07-03] MEDS ORDERED: PROPOFOL 10 MG/ML, 20ML ONE (08:56)
[2019-07-03] MEDS ORDERED: NEOSTIGMINE 1 MG/ML, 10ML ONE (08:56)
[2019-07-03] MEDS ORDERED: ONDANSETRON 2MG/ML, 2ML ONE (08:56)
[2019-07-03] MEDS ORDERED: ROCURONIUM 10MG/ML,5ML ONE (08:56)
[2019-07-03] MEDS ORDERED: HYDROmorphone 2 MG/ML, 1ML ONE ×2 (09:13→09:31)
[2019-07-03] MEDS ORDERED: FENTANYL PF 100 MCG/2ML ONE (09:13)
[2019-07-03] MEDS: FENTANYL PF 100 MCG/2ML IV PRN ×2 (09:17→09:24)
[2019-07-03] MEDS: HYDROmorphone 2 MG/ML, 1ML IVPush PRN ×10 (09:18→22:08)
[2019-07-03] MEDS ORDERED: PROMETHAZINE 25 MG/ML, 1ML ONE (09:31)
[2019-07-03] MEDS ORDERED: LORazepam 2 MG/ML, 1ML ONE (09:45)
[2019-07-03] MEDS: LORazepam 2 MG/ML, 1ML IVPush PRN ×2 (09:49→09:59)
[2019-07-03] MEDS ORDERED: ADENOSINE 6 MG/2 ML ONE ×2 (10:28→10:32)
[2019-07-03 14:02] VITALS: BP 146/91
[2019-07-03 18:46] VITALS: BP 158/90
[2019-07-03] MEDS: OXYcodone/APAP 5/325MG TABLET PO PRN (19:50)
[2019-07-03] MEDS: TEMAZEPAM 15 MG CAPSULE PO PRN (20:01)
[2019-07-03] MEDS: FLUCONAZOLE 100MG/50ML 100 MG in BAG 1 EACH IV SCH (20:52)
[2019-07-04 00:04] VITALS: BP 153/80
[2019-07-04] MEDS: METRONIDAZOLE PMX 500MG/100ML 100 ML IV SCH ×4 (00:18→17:38)
[2019-07-04] MEDS: OXYcodone/APAP 5/325MG TABLET PO PRN ×2 (00:24→08:14)
[2019-07-04] MEDS: PIPERACILLIN/TAZO/PMX 3.375GM 50 ML IV SCH ×4 (01:23→19:00)
[2019-07-04] MEDS: HYDROmorphone 2 MG/ML, 1ML IVPush PRN ×4 (01:34→20:45)
[2019-07-04 03:50] VITALS: BP 137/81
[2019-07-04 04:37] LABS: MEAN CORPUSCULAR HEMOGLOBIN 30.3 pg (27.5-34.5); MEAN CORPUSCULAR HGB CONC 33.4 g/dL (33.2-36.2); MEAN CORPUSCULAR VOLUME 90.6 fL (81-97); PLATELET COUNT 843 x10^3/uL (130-400); RED CELL DISTRIBUTION WIDTH 14.8 % (9.4-14.8)
[2019-07-04 04:46] LABS: ANION GAP 7 mmol/L (5-15); CALCIUM 8.1 mg/dL (8.5-10.1); CHLORIDE 106 mmol/L (98-107)
[2019-07-04 04:47] LABS: CREATININE 0.92 mg/dL (0.7-1.3)
[2019-07-04 05:22] LABS: BASOPHILS # (AUTO) 0.06 x10^3/uL (0-0.1); BASOPHILS % (AUTO) 0 % (0-1); EOSINOPHILS # (AUTO) 0.03 x10^3/uL (0-0.4); EOSINOPHILS % (AUTO) 0 % (1-7); LYMPHOCYTES # (AUTO) 0.85 x10^3/uL (1-3.4); LYMPHOCYTES % (AUTO) 5 % (22-44); MD SCAN; MONOCYTES % (AUTO) 6 % (2-9); NEUTROPHILS # (AUTO) 14.62 x10^3/uL (1.8-6.8); NEUTROPHILS % (AUTO) 88 % (42-75)
[2019-07-04 07:02] VITALS: BP 152/92
[2019-07-04] MEDS ORDERED: LORazepam 0.5MG TABLET PO PRN (10:30)
[2019-07-04 12:39] VITALS: BP 148/82
[2019-07-04 19:09] VITALS: BP 138/80
[2019-07-04] MEDS: FLUCONAZOLE 100MG/50ML 100 MG in BAG 1 EACH IV SCH (20:45)
[2019-07-04] MEDS: LORazepam 0.5MG TABLET PO PRN (20:45)
[2019-07-05 00:03] VITALS: BP 143/85
[2019-07-05] MEDS: PIPERACILLIN/TAZO/PMX 3.375GM 50 ML IV SCH ×4 (01:00→22:14)
[2019-07-05] MEDS: HYDROmorphone 2 MG/ML, 1ML IVPush PRN ×4 (01:42→20:06)
[2019-07-05] MEDS: METRONIDAZOLE PMX 500MG/100ML 100 ML IV SCH ×4 (05:18→18:33)
[2019-07-05 06:04] VITALS: BP 145/88
[2019-07-05 06:26] LABS: BASOPHILS # (AUTO) 0.04 x10^3/uL (0-0.1); BASOPHILS % (AUTO) 0 % (0-1); EOSINOPHILS # (AUTO) 0.05 x10^3/uL (0-0.4); EOSINOPHILS % (AUTO) 0 % (1-7); LYMPHOCYTES # (AUTO) 1.06 x10^3/uL (1-3.4); LYMPHOCYTES % (AUTO) 8 % (22-44); MD NO; MEAN CORPUSCULAR HEMOGLOBIN 30.5 pg (27.5-34.5); MEAN CORPUSCULAR HGB CONC 33.8 g/dL (33.2-36.2); MEAN CORPUSCULAR VOLUME 90.2 fL (81-97); MEAN PLATELET VOLUME 6.5 fL (7.4-10.4); MONOCYTES # (AUTO) 0.94 x10^3/uL (0.2-0.8); MONOCYTES % (AUTO) 7 % (2-9); NEUTROPHILS % (AUTO) 84 % (42-75); PLATELET COUNT 997 x10^3/uL (130-400); RED BLOOD COUNT 3.72 x10^6/uL (4.38-5.82); RED CELL DISTRIBUTION WIDTH 14.8 % (9.4-14.8)
[2019-07-05 06:36] LABS: ANION GAP 7 mmol/L (5-15); CALCIUM 8.1 mg/dL (8.5-10.1); CHLORIDE 104 mmol/L (98-107); CREATININE 0.83 mg/dL (0.7-1.3)
[2019-07-05 12:16] VITALS: BP 150/91
[2019-07-05] MEDS: OXYcodone/APAP 5/325MG TABLET PO PRN (12:43)
[2019-07-05 18:28] VITALS: BP 158/94
[2019-07-05] MEDS: LORazepam 0.5MG TABLET PO PRN (20:05)
[2019-07-05] MEDS: FLUCONAZOLE 100MG/50ML 100 MG in BAG 1 EACH IV SCH (20:54)
[2019-07-06] MEDS: METRONIDAZOLE PMX 500MG/100ML 100 ML IV SCH ×4 (00:06→19:31)
[2019-07-06 01:17] VITALS: BP 153/89
[2019-07-06] MEDS: HYDROmorphone 2 MG/ML, 1ML IVPush PRN ×2 (01:57→08:54)
[2019-07-06] MEDS: PIPERACILLIN/TAZO/PMX 3.375GM 50 ML IV SCH ×4 (04:10→22:59)
[2019-07-06 05:20] LABS: MEAN CORPUSCULAR HEMOGLOBIN 30.1 pg (27.5-34.5); MEAN CORPUSCULAR HGB CONC 33.4 g/dL (33.2-36.2); MEAN CORPUSCULAR VOLUME 90.2 fL (81-97); MEAN PLATELET VOLUME 6.5 fL (7.4-10.4); PLATELET COUNT 985 x10^3/uL (130-400); RED BLOOD COUNT 3.81 x10^6/uL (4.38-5.82); RED CELL DISTRIBUTION WIDTH 14.4 % (9.4-14.8)
[2019-07-06 05:26] LABS: ANION GAP 7 mmol/L (5-15); CHLORIDE 103 mmol/L (98-107)
[2019-07-06 05:29] LABS: CREATININE 0.82 mg/dL (0.7-1.3)
[2019-07-06] MEDS: OXYcodone/APAP 5/325MG TABLET PO PRN ×3 (05:49→19:31)
[2019-07-06 05:53] LABS: BASOPHILS # (AUTO) 0.06 x10^3/uL (0-0.1); BASOPHILS % (AUTO) 1 % (0-1); EOSINOPHILS # (AUTO) 0.11 x10^3/uL (0-0.4); EOSINOPHILS % (AUTO) 1 % (1-7); LYMPHOCYTES # (AUTO) 0.98 x10^3/uL (1-3.4); LYMPHOCYTES % (AUTO) 8 % (22-44); MD SCAN; MONOCYTES # (AUTO) 0.85 x10^3/uL (0.2-0.8); MONOCYTES % (AUTO) 7 % (2-9); NEUTROPHILS % (AUTO) 84 % (42-75)
[2019-07-06 06:08] VITALS: BP 147/88
[2019-07-06 12:18] VITALS: BP 152/92
[2019-07-06] MEDS: ENOXAPARIN 40 MG/0.4 ML SQ SCH (17:00)
[2019-07-06 18:48] VITALS: BP 152/89
[2019-07-06] MEDS: FLUCONAZOLE 100MG/50ML 100 MG in BAG 1 EACH IV SCH (20:41)
[2019-07-06] MEDS: TEMAZEPAM 15 MG CAPSULE PO PRN (22:59)
[2019-07-07 00:20] VITALS: BP 155/95
[2019-07-07] MEDS: METRONIDAZOLE PMX 500MG/100ML 100 ML IV SCH ×2 (01:26→07:50)
[2019-07-07] MEDS: OXYcodone/APAP 5/325MG TABLET PO PRN ×4 (04:38→19:28)
[2019-07-07] MEDS: PIPERACILLIN/TAZO/PMX 3.375GM 50 ML IV SCH ×4 (04:38→22:46)
[2019-07-07 05:11] LABS: BASOPHILS # (AUTO) 0.03 x10^3/uL (0-0.1); BASOPHILS % (AUTO) 0 % (0-1); EOSINOPHILS # (AUTO) 0.13 x10^3/uL (0-0.4); EOSINOPHILS % (AUTO) 1 % (1-7); LYMPHOCYTES # (AUTO) 0.99 x10^3/uL (1-3.4); LYMPHOCYTES % (AUTO) 8 % (22-44); MD NO; MEAN CORPUSCULAR HEMOGLOBIN 29.9 pg (27.5-34.5); MEAN CORPUSCULAR HGB CONC 33.2 g/dL (33.2-36.2); MEAN PLATELET VOLUME 6.4 fL (7.4-10.4); MONOCYTES # (AUTO) 0.84 x10^3/uL (0.2-0.8); MONOCYTES % (AUTO) 7 % (2-9); NEUTROPHILS # (AUTO) 9.83 x10^3/uL (1.8-6.8); NEUTROPHILS % (AUTO) 83 % (42-75); PLATELET COUNT 987 x10^3/uL (130-400); RED BLOOD COUNT 3.84 x10^6/uL (4.38-5.82); RED CELL DISTRIBUTION WIDTH 14.4 % (9.4-14.8)
[2019-07-07 05:16] LABS: CALCIUM 8.1 mg/dL (8.5-10.1); CHLORIDE 106 mmol/L (98-107)
[2019-07-07 05:20] LABS: ANION GAP 6 mmol/L (5-15)
[2019-07-07 06:18] VITALS: BP 153/78
[2019-07-07] MEDS ORDERED: POTASSIUM CHLORIDE 20 MEQ TAB.ER.PRT ONE (09:36)
[2019-07-07 09:42] VITALS: BP 153/93
[2019-07-07] MEDS ORDERED: POTASSIUM CHLORIDE 20 MEQ TAB.ER.PRT PO ONE (10:00)
[2019-07-07 12:16] VITALS: BP 130/79
[2019-07-07] MEDS: MICAFUNGIN 100 MG in SODIUM CHLORIDE 0.9% 100 ML IV SCH (15:08)
[2019-07-07] MEDS: ENOXAPARIN 40 MG/0.4 ML SQ SCH (17:33)
[2019-07-07 18:24] VITALS: BP 155/89
[2019-07-08] MEDS: LORazepam 0.5MG TABLET PO PRN (00:04)
[2019-07-08 00:21] VITALS: BP 149/84
[2019-07-08 05:01] LABS: MEAN CORPUSCULAR HEMOGLOBIN 29.9 pg (27.5-34.5); MEAN CORPUSCULAR HGB CONC 33.4 g/dL (33.2-36.2); MEAN CORPUSCULAR VOLUME 89.5 fL (81-97); MEAN PLATELET VOLUME 6.2 fL (7.4-10.4); PLATELET COUNT 832 x10^3/uL (130-400); RED BLOOD COUNT 3.76 x10^6/uL (4.38-5.82); RED CELL DISTRIBUTION WIDTH 14.7 % (9.4-14.8)
[2019-07-08 05:04] LABS: ANION GAP 6 mmol/L (5-15); CALCIUM 8.2 mg/dL (8.5-10.1); CHLORIDE 106 mmol/L (98-107); CREATININE 0.94 mg/dL (0.7-1.3)
[2019-07-08] MEDS: OXYcodone/APAP 5/325MG TABLET PO PRN ×4 (05:23→23:00)
[2019-07-08] MEDS: PIPERACILLIN/TAZO/PMX 3.375GM 50 ML IV SCH ×4 (05:24→22:55)
[2019-07-08 05:58] LABS: BASOPHILS # (AUTO) 0.02 x10^3/uL (0-0.1); BASOPHILS % (AUTO) 0 % (0-1); EOSINOPHILS # (AUTO) 0.16 x10^3/uL (0-0.4); EOSINOPHILS % (AUTO) 2 % (1-7); LYMPHOCYTES # (AUTO) 0.95 x10^3/uL (1-3.4); LYMPHOCYTES % (AUTO) 10 % (22-44); MD SCAN; MONOCYTES # (AUTO) 0.68 x10^3/uL (0.2-0.8); MONOCYTES % (AUTO) 7 % (2-9); NEUTROPHILS % (AUTO) 81 % (42-75)
[2019-07-08 06:08] VITALS: BP 143/93
[2019-07-08 12:02] VITALS: BP 155/97
[2019-07-08] MEDS: POTASSIUM CHLORIDE 40 MEQ in SODIUM CHLORIDE 0.45% 1,000 ML IV SCH (12:41)
[2019-07-08 13:35] LABS: FREE T4 (FREE THYROXINE) 1.51 ng/dL (0.76-1.46)
[2019-07-08] MEDS: MICAFUNGIN 100 MG in SODIUM CHLORIDE 0.9% 100 ML IV SCH (14:59)
[2019-07-08] MEDS: ENOXAPARIN 40 MG/0.4 ML SQ SCH (17:16)
[2019-07-08 19:33] VITALS: BP 156/96
[2019-07-08] MEDS: TEMAZEPAM 15 MG CAPSULE PO PRN (20:19)
[2019-07-09 02:32] VITALS: BP 160/94
[2019-07-09] MEDS: POTASSIUM CHLORIDE 40 MEQ in SODIUM CHLORIDE 0.45% 1,000 ML IV SCH ×2 (03:44→17:55)
[2019-07-09] MEDS: PIPERACILLIN/TAZO/PMX 3.375GM 50 ML IV SCH (05:10)
[2019-07-09 05:35] LABS: BASOPHILS # (AUTO) 0.04 x10^3/uL (0-0.1); BASOPHILS % (AUTO) 1 % (0-1); EOSINOPHILS # (AUTO) 0.28 x10^3/uL (0-0.4); EOSINOPHILS % (AUTO) 3 % (1-7); LYMPHOCYTES # (AUTO) 1.44 x10^3/uL (1-3.4); LYMPHOCYTES % (AUTO) 17 % (22-44); MD NO; MEAN CORPUSCULAR HEMOGLOBIN 30.1 pg (27.5-34.5); MEAN CORPUSCULAR HGB CONC 33.8 g/dL (33.2-36.2); MEAN CORPUSCULAR VOLUME 89.1 fL (81-97); MEAN PLATELET VOLUME 6.4 fL (7.4-10.4); MONOCYTES # (AUTO) 0.83 x10^3/uL (0.2-0.8); MONOCYTES % (AUTO) 10 % (2-9); NEUTROPHILS % (AUTO) 70 % (42-75); PLATELET COUNT 706 x10^3/uL (130-400); RED BLOOD COUNT 3.51 x10^6/uL (4.38-5.82); RED CELL DISTRIBUTION WIDTH 14.7 % (9.4-14.8)
[2019-07-09 05:41] LABS: CHLORIDE 107 mmol/L (98-107)
[2019-07-09 05:42] LABS: ANION GAP 7 mmol/L (5-15); CREATININE 1.04 mg/dL (0.7-1.3)
[2019-07-09] MEDS: OXYcodone/APAP 5/325MG TABLET PO PRN ×3 (06:10→23:33)
[2019-07-09 06:51] VITALS: BP 161/91
[2019-07-09] MEDS: PIPERACILLIN/TAZO/PMX 4.5GM 100 ML IV SCH ×2 (10:13→17:55)
[2019-07-09 14:17] VITALS: BP 156/94
[2019-07-09] MEDS: MICAFUNGIN 100 MG in SODIUM CHLORIDE 0.9% 100 ML IV SCH (14:38)
[2019-07-09] MEDS: ENOXAPARIN 40 MG/0.4 ML SQ SCH (17:55)
[2019-07-09 19:10] VITALS: BP 154/97
[2019-07-09] MEDS: TEMAZEPAM 15 MG CAPSULE PO PRN ×2 (22:24→23:40)
[2019-07-10] MEDS: PIPERACILLIN/TAZO/PMX 4.5GM 100 ML IV SCH ×3 (00:14→18:37)
[2019-07-10 00:44] VITALS: BP 125/82
[2019-07-10 05:23] LABS: BASOPHILS # (AUTO) 0.03 x10^3/uL (0-0.1); BASOPHILS % (AUTO) 0 % (0-1); EOSINOPHILS # (AUTO) 0.32 x10^3/uL (0-0.4); EOSINOPHILS % (AUTO) 3 % (1-7); LYMPHOCYTES # (AUTO) 1.44 x10^3/uL (1-3.4); LYMPHOCYTES % (AUTO) 15 % (22-44); MD NO; MEAN CORPUSCULAR HGB CONC 33.3 g/dL (33.2-36.2); MEAN CORPUSCULAR VOLUME 90.2 fL (81-97); MEAN PLATELET VOLUME 6.6 fL (7.4-10.4); MONOCYTES # (AUTO) 0.75 x10^3/uL (0.2-0.8); MONOCYTES % (AUTO) 8 % (2-9); NEUTROPHILS # (AUTO) 7.39 x10^3/uL (1.8-6.8); NEUTROPHILS % (AUTO) 74 % (42-75); PLATELET COUNT 702 x10^3/uL (130-400); RED BLOOD COUNT 3.89 x10^6/uL (4.38-5.82); RED CELL DISTRIBUTION WIDTH 14.9 % (9.4-14.8)
[2019-07-10 05:28] LABS: ANION GAP 4 mmol/L (5-15); CALCIUM 8.4 mg/dL (8.5-10.1); CHLORIDE 107 mmol/L (98-107)
[2019-07-10 07:56] VITALS: BP 136/94
[2019-07-10] MEDS: OXYcodone/APAP 5/325MG TABLET PO PRN ×3 (09:30→23:34)
[2019-07-10] MEDS: POTASSIUM CHLORIDE 40 MEQ in SODIUM CHLORIDE 0.45% 1,000 ML IV SCH (09:30)
[2019-07-10 12:05] VITALS: BP 145/94
[2019-07-10] MEDS: MICAFUNGIN 100 MG in SODIUM CHLORIDE 0.9% 100 ML IV SCH (14:43)
[2019-07-10 18:20] VITALS: BP 125/76
[2019-07-10] MEDS: ENOXAPARIN 40 MG/0.4 ML SQ SCH (18:36)
[2019-07-10] MEDS: METOPROLOL TARTRATE 25 MG TAB PO SCH (18:37)
[2019-07-10] MEDS: TEMAZEPAM 15 MG CAPSULE PO PRN ×2 (21:33→23:35)
[2019-07-11 00:09] VITALS: BP 130/83
[2019-07-11] MEDS: POTASSIUM CHLORIDE 40 MEQ in SODIUM CHLORIDE 0.45% 1,000 ML IV SCH ×2 (00:10→16:40)
[2019-07-11] MEDS: PIPERACILLIN/TAZO/PMX 4.5GM 100 ML IV SCH ×3 (02:13→18:01)
[2019-07-11] MEDS: METOPROLOL TARTRATE 25 MG TAB PO SCH ×2 (06:25→17:21)
[2019-07-11 06:43] LABS: BASOPHILS # (AUTO) 0.06 x10^3/uL (0-0.1); BASOPHILS % (AUTO) 1 % (0-1); EOSINOPHILS # (AUTO) 0.34 x10^3/uL (0-0.4); EOSINOPHILS % (AUTO) 4 % (1-7); LYMPHOCYTES # (AUTO) 1.42 x10^3/uL (1-3.4); LYMPHOCYTES % (AUTO) 15 % (22-44); MD NO; MEAN CORPUSCULAR HGB CONC 33.5 g/dL (33.2-36.2); MEAN CORPUSCULAR VOLUME 89.6 fL (81-97); MEAN PLATELET VOLUME 6.7 fL (7.4-10.4); MONOCYTES % (AUTO) 8 % (2-9); NEUTROPHILS # (AUTO) 7.15 x10^3/uL (1.8-6.8); NEUTROPHILS % (AUTO) 73 % (42-75); PLATELET COUNT 674 x10^3/uL (130-400); RED BLOOD COUNT 3.78 x10^6/uL (4.38-5.82); RED CELL DISTRIBUTION WIDTH 14.8 % (9.4-14.8)
[2019-07-11 06:53] LABS: ANION GAP 7 mmol/L (5-15); CALCIUM 8.5 mg/dL (8.5-10.1); CHLORIDE 106 mmol/L (98-107); CREATININE 1.02 mg/dL (0.7-1.3)
[2019-07-11 07:01] VITALS: BP 135/89
[2019-07-11] MEDS: OXYcodone/APAP 5/325MG TABLET PO PRN ×3 (07:55→20:55)
[2019-07-11] MEDS: LORazepam 0.5MG TABLET PO PRN (10:32)
[2019-07-11] MEDS: MICAFUNGIN 100 MG in SODIUM CHLORIDE 0.9% 100 ML IV SCH (13:56)
[2019-07-11 15:36] VITALS: BP 142/88
[2019-07-11] MEDS: ENOXAPARIN 40 MG/0.4 ML SQ SCH (16:08)
[2019-07-11 17:19] VITALS: BP 128/89
[2019-07-11 18:32] VITALS: BP 114/71
[2019-07-11] MEDS: TEMAZEPAM 15 MG CAPSULE PO PRN (20:55)
[2019-07-12 00:23] VITALS: BP 131/89
[2019-07-12] MEDS: LORazepam 0.5MG TABLET PO PRN ×3 (01:35→19:45)
[2019-07-12] MEDS: PIPERACILLIN/TAZO/PMX 4.5GM 100 ML IV SCH ×3 (02:11→18:19)
[2019-07-12] MEDS: OXYcodone/APAP 5/325MG TABLET PO PRN ×4 (02:11→19:44)
[2019-07-12 05:36] VITALS: BP 115/75
[2019-07-12] MEDS: METOPROLOL TARTRATE 25 MG TAB PO SCH ×2 (05:39→17:14)
[2019-07-12 05:41] LABS: BASOPHILS # (AUTO) 0.03 x10^3/uL (0-0.1); BASOPHILS % (AUTO) 0 % (0-1); EOSINOPHILS # (AUTO) 0.39 x10^3/uL (0-0.4); EOSINOPHILS % (AUTO) 3 % (1-7); LYMPHOCYTES % (AUTO) 14 % (22-44); MD NO; MEAN CORPUSCULAR HGB CONC 33.3 g/dL (33.2-36.2); MEAN PLATELET VOLUME 6.8 fL (7.4-10.4); MONOCYTES # (AUTO) 0.95 x10^3/uL (0.2-0.8); MONOCYTES % (AUTO) 8 % (2-9); NEUTROPHILS % (AUTO) 74 % (42-75); PLATELET COUNT 706 x10^3/uL (130-400); RED BLOOD COUNT 3.96 x10^6/uL (4.38-5.82); RED CELL DISTRIBUTION WIDTH 15.2 % (9.4-14.8)
[2019-07-12 05:48] LABS: ANION GAP 7 mmol/L (5-15); CALCIUM 8.7 mg/dL (8.5-10.1); CHLORIDE 108 mmol/L (98-107)
[2019-07-12 05:50] LABS: CREATININE 1.03 mg/dL (0.7-1.3)
[2019-07-12 06:49] VITALS: BP 124/81
[2019-07-12] MEDS: POTASSIUM CHLORIDE 40 MEQ in SODIUM CHLORIDE 0.45% 1,000 ML IV SCH ×2 (08:00→22:36)
[2019-07-12 13:53] VITALS: BP 112/75
[2019-07-12] MEDS: MICAFUNGIN 100 MG in SODIUM CHLORIDE 0.9% 100 ML IV SCH (13:54)
[2019-07-12] MEDS: ENOXAPARIN 40 MG/0.4 ML SQ SCH (15:55)
[2019-07-12 18:11] VITALS: BP 130/81
[2019-07-12] MEDS: TEMAZEPAM 15 MG CAPSULE PO PRN ×2 (21:12→22:36)
[2019-07-12 22:27] VITALS: BP 133/81
[2019-07-13] VITALS (7 sets, daily range): BP systolic 112–137; BP diastolic 75–90
[2019-07-13] MEDS ORDERED: METOPROLOL TARTRATE 25 MG TAB PO ONE ×2 (01:30→09:00)
[2019-07-13] MEDS: PIPERACILLIN/TAZO/PMX 4.5GM 100 ML IV SCH ×3 (02:06→18:28)
[2019-07-13] MEDS: METOPROLOL TARTRATE 25 MG TAB PO SCH ×2 (04:55→17:07)
[2019-07-13 05:08] LABS: ANION GAP 4 mmol/L (5-15); BASOPHILS # (AUTO) 0.15 x10^3/uL (0-0.1); BASOPHILS % (AUTO) 1 % (0-1); CALCIUM 8.7 mg/dL (8.5-10.1); CHLORIDE 106 mmol/L (98-107); EOSINOPHILS # (AUTO) 0.37 x10^3/uL (0-0.4); EOSINOPHILS % (AUTO) 3 % (1-7); LYMPHOCYTES # (AUTO) 1.48 x10^3/uL (1-3.4); LYMPHOCYTES % (AUTO) 13 % (22-44); MD NO; MEAN CORPUSCULAR HEMOGLOBIN 30.1 pg (27.5-34.5); MEAN CORPUSCULAR HGB CONC 33.7 g/dL (33.2-36.2); MEAN CORPUSCULAR VOLUME 89.4 fL (81-97); MEAN PLATELET VOLUME 6.8 fL (7.4-10.4); MONOCYTES # (AUTO) 1.12 x10^3/uL (0.2-0.8); MONOCYTES % (AUTO) 10 % (2-9); NEUTROPHILS # (AUTO) 8.56 x10^3/uL (1.8-6.8); NEUTROPHILS % (AUTO) 73 % (42-75); PLATELET COUNT 637 x10^3/uL (130-400); RED BLOOD COUNT 3.84 x10^6/uL (4.38-5.82); RED CELL DISTRIBUTION WIDTH 15.6 % (9.4-14.8)
[2019-07-13 05:09] LABS: CREATININE 1.02 mg/dL (0.7-1.3)
[2019-07-13] MEDS: OXYcodone/APAP 5/325MG TABLET PO PRN ×3 (06:14→19:54)
[2019-07-13] MEDS: LORazepam 0.5MG TABLET PO PRN ×2 (06:14→19:55)
[2019-07-13] MEDS: MICAFUNGIN 100 MG in SODIUM CHLORIDE 0.9% 100 ML IV SCH (14:05)
[2019-07-13] MEDS: POTASSIUM CHLORIDE 40 MEQ in SODIUM CHLORIDE 0.45% 1,000 ML IV SCH (15:26)
[2019-07-13] MEDS: ENOXAPARIN 40 MG/0.4 ML SQ SCH (16:26)
[2019-07-13] MEDS: TEMAZEPAM 15 MG CAPSULE PO PRN (21:18)
[2019-07-14 00:37] VITALS: BP 120/71
[2019-07-14] MEDS: TEMAZEPAM 15 MG CAPSULE PO PRN ×3 (00:46→23:38)
[2019-07-14] MEDS: OXYcodone/APAP 5/325MG TABLET PO PRN ×4 (00:47→22:01)
[2019-07-14] MEDS: PIPERACILLIN/TAZO/PMX 4.5GM 100 ML IV SCH ×3 (02:11→18:23)
[2019-07-14 04:48] LABS: BASOPHILS # (AUTO) 0.02 x10^3/uL (0-0.1); BASOPHILS % (AUTO) 0 % (0-1); EOSINOPHILS # (AUTO) 0.43 x10^3/uL (0-0.4); EOSINOPHILS % (AUTO) 4 % (1-7); LYMPHOCYTES # (AUTO) 1.73 x10^3/uL (1-3.4); LYMPHOCYTES % (AUTO) 16 % (22-44); MD NO; MEAN CORPUSCULAR HEMOGLOBIN 30.1 pg (27.5-34.5); MEAN CORPUSCULAR HGB CONC 33.6 g/dL (33.2-36.2); MEAN CORPUSCULAR VOLUME 89.6 fL (81-97); MEAN PLATELET VOLUME 6.8 fL (7.4-10.4); MONOCYTES # (AUTO) 0.99 x10^3/uL (0.2-0.8); MONOCYTES % (AUTO) 9 % (2-9); NEUTROPHILS # (AUTO) 7.68 x10^3/uL (1.8-6.8); NEUTROPHILS % (AUTO) 71 % (42-75); PLATELET COUNT 591 x10^3/uL (130-400); RED BLOOD COUNT 3.79 x10^6/uL (4.38-5.82); RED CELL DISTRIBUTION WIDTH 14.7 % (9.4-14.8)
[2019-07-14 05:00] LABS: ANION GAP 5 mmol/L (5-15); CALCIUM 8.8 mg/dL (8.5-10.1); CHLORIDE 104 mmol/L (98-107); CREATININE 1.13 mg/dL (0.7-1.3)
[2019-07-14 05:11] VITALS: BP 130/88
[2019-07-14] MEDS: LORazepam 0.5MG TABLET PO PRN ×3 (05:12→23:38)
[2019-07-14] MEDS: METOPROLOL TARTRATE 25 MG TAB PO SCH (05:12)
[2019-07-14] MEDS: POTASSIUM CHLORIDE 40 MEQ in SODIUM CHLORIDE 0.45% 1,000 ML IV SCH (05:12)
[2019-07-14 07:17] VITALS: BP 130/84
[2019-07-14] MEDS ORDERED: METOPROLOL TARTRATE 50 MG TAB PO ONE (12:30)
[2019-07-14 12:33] VITALS: BP 127/85
[2019-07-14] MEDS: MICAFUNGIN 100 MG in SODIUM CHLORIDE 0.9% 100 ML IV SCH (16:09)
[2019-07-14] MEDS: ENOXAPARIN 40 MG/0.4 ML SQ SCH (16:09)
[2019-07-14 16:14] LABS: FREE T4 (FREE THYROXINE) 1.39 ng/dL (0.76-1.46)
[2019-07-14] MEDS: METOPROLOL TARTRATE 50 MG TAB PO SCH (18:25)
[2019-07-14 18:35] VITALS: BP 127/80
[2019-07-15 00:50] VITALS: BP 127/81
[2019-07-15] MEDS: PIPERACILLIN/TAZO/PMX 4.5GM 100 ML IV SCH ×3 (02:01→18:32)
[2019-07-15 05:06] VITALS: BP 126/78
[2019-07-15] MEDS: OXYcodone/APAP 5/325MG TABLET PO PRN ×3 (05:09→19:55)
[2019-07-15] MEDS: METOPROLOL TARTRATE 50 MG TAB PO SCH ×2 (05:09→17:04)
[2019-07-15] MEDS: POTASSIUM CHLORIDE 40 MEQ in SODIUM CHLORIDE 0.45% 1,000 ML IV SCH (05:10)
[2019-07-15 05:27] LABS: BASOPHILS # (AUTO) 0.02 x10^3/uL (0-0.1); BASOPHILS % (AUTO) 0 % (0-1); EOSINOPHILS # (AUTO) 0.46 x10^3/uL (0-0.4); EOSINOPHILS % (AUTO) 4 % (1-7); LYMPHOCYTES # (AUTO) 1.53 x10^3/uL (1-3.4); LYMPHOCYTES % (AUTO) 14 % (22-44); MD NO; MEAN CORPUSCULAR HGB CONC 33.3 g/dL (33.2-36.2); MEAN CORPUSCULAR VOLUME 90.2 fL (81-97); MEAN PLATELET VOLUME 6.7 fL (7.4-10.4); MONOCYTES # (AUTO) 0.96 x10^3/uL (0.2-0.8); MONOCYTES % (AUTO) 9 % (2-9); NEUTROPHILS % (AUTO) 74 % (42-75); PLATELET COUNT 645 x10^3/uL (130-400); RED BLOOD COUNT 4.01 x10^6/uL (4.38-5.82); RED CELL DISTRIBUTION WIDTH 15.5 % (9.4-14.8)
[2019-07-15 05:34] LABS: ANION GAP 8 mmol/L (5-15); CALCIUM 8.7 mg/dL (8.5-10.1); CHLORIDE 108 mmol/L (98-107)
[2019-07-15 06:15] VITALS: BP 125/85
[2019-07-15] MEDS: LORazepam 0.5MG TABLET PO PRN ×2 (09:31→21:56)
[2019-07-15] MEDS ORDERED: DRONABINOL 2.5 MG CAPSULE PO SCH (12:00)
[2019-07-15 12:12] VITALS: BP 136/84
[2019-07-15] MEDS: DRONABINOL 5 MG CAPSULE PO SCH ×2 (12:43→19:54)
[2019-07-15] MEDS: MICAFUNGIN 100 MG in SODIUM CHLORIDE 0.9% 100 ML IV SCH (14:18)
[2019-07-15] MEDS: ENOXAPARIN 40 MG/0.4 ML SQ SCH (17:04)
[2019-07-15 18:24] VITALS: BP 134/87
[2019-07-15] MEDS: TEMAZEPAM 15 MG CAPSULE PO PRN (19:54)
[2019-07-16] MEDS: OXYcodone/APAP 5/325MG TABLET PO PRN ×4 (01:02→21:05)
[2019-07-16 01:04] VITALS: BP 130/80
[2019-07-16] MEDS: PIPERACILLIN/TAZO/PMX 4.5GM 100 ML IV SCH ×3 (02:30→18:40)
[2019-07-16] MEDS: METOPROLOL TARTRATE 50 MG TAB PO SCH ×2 (05:00→17:28)
[2019-07-16 06:54] VITALS: BP 125/78
[2019-07-16] MEDS: LORazepam 0.5MG TABLET PO PRN ×2 (08:35→17:43)
[2019-07-16] MEDS: DRONABINOL 5 MG CAPSULE PO SCH ×2 (08:35→21:05)
[2019-07-16 10:46] LABS: BASOPHILS # (AUTO) 0.05 x10^3/uL (0-0.1); BASOPHILS % (AUTO) 1 % (0-1); EOSINOPHILS # (AUTO) 0.39 x10^3/uL (0-0.4); EOSINOPHILS % (AUTO) 5 % (1-7); LYMPHOCYTES # (AUTO) 1.39 x10^3/uL (1-3.4); LYMPHOCYTES % (AUTO) 17 % (22-44); MD NO; MEAN CORPUSCULAR HEMOGLOBIN 29.7 pg (27.5-34.5); MEAN CORPUSCULAR HGB CONC 33.4 g/dL (33.2-36.2); MEAN PLATELET VOLUME 7.1 fL (7.4-10.4); MONOCYTES # (AUTO) 0.71 x10^3/uL (0.2-0.8); MONOCYTES % (AUTO) 8 % (2-9); NEUTROPHILS # (AUTO) 5.84 x10^3/uL (1.8-6.8); NEUTROPHILS % (AUTO) 70 % (42-75); PLATELET COUNT 554 x10^3/uL (130-400); RED BLOOD COUNT 3.78 x10^6/uL (4.38-5.82); RED CELL DISTRIBUTION WIDTH 15.4 % (9.4-14.8)
[2019-07-16 12:20] VITALS: BP 110/79
[2019-07-16] MEDS ORDERED: METOPROLOL 1 MG/ML, 5ML IVPush ONE (14:00)
[2019-07-16] MEDS: MICAFUNGIN 100 MG in SODIUM CHLORIDE 0.9% 100 ML IV SCH (15:04)
[2019-07-16] MEDS: ENOXAPARIN 40 MG/0.4 ML SQ SCH (17:27)
[2019-07-16 19:32] VITALS: BP 112/76
[2019-07-16] MEDS: POTASSIUM CHLORIDE 40 MEQ in SODIUM CHLORIDE 0.45% 1,000 ML IV SCH ×2 (21:04)
[2019-07-16] MEDS: TEMAZEPAM 15 MG CAPSULE PO PRN (21:04)
[2019-07-17 01:05] VITALS: BP 122/85
[2019-07-17] MEDS: PIPERACILLIN/TAZO/PMX 4.5GM 100 ML IV SCH ×3 (02:36→17:57)
[2019-07-17] MEDS: OXYcodone/APAP 5/325MG TABLET PO PRN ×4 (03:20→20:57)
[2019-07-17 05:11] VITALS: BP 129/76
[2019-07-17] MEDS: METOPROLOL TARTRATE 50 MG TAB PO SCH ×2 (05:13→17:57)
[2019-07-17 07:07] VITALS: BP 126/79
[2019-07-17] MEDS: DRONABINOL 5 MG CAPSULE PO SCH ×2 (09:32→20:56)
[2019-07-17] MEDS: LORazepam 0.5MG TABLET PO PRN ×2 (09:32→18:09)
[2019-07-17 11:06] LABS: BASOPHILS # (AUTO) 0.14 x10^3/uL (0-0.1); BASOPHILS % (AUTO) 1 % (0-1); EOSINOPHILS % (AUTO) 5 % (1-7); LYMPHOCYTES # (AUTO) 1.63 x10^3/uL (1-3.4); LYMPHOCYTES % (AUTO) 17 % (22-44); MD NO; MEAN CORPUSCULAR HEMOGLOBIN 29.8 pg (27.5-34.5); MEAN CORPUSCULAR HGB CONC 32.9 g/dL (33.2-36.2); MEAN CORPUSCULAR VOLUME 90.4 fL (81-97); MEAN PLATELET VOLUME 6.7 fL (7.4-10.4); MONOCYTES # (AUTO) 0.82 x10^3/uL (0.2-0.8); MONOCYTES % (AUTO) 8 % (2-9); NEUTROPHILS # (AUTO) 6.77 x10^3/uL (1.8-6.8); NEUTROPHILS % (AUTO) 69 % (42-75); PLATELET COUNT 631 x10^3/uL (130-400); RED BLOOD COUNT 4.08 x10^6/uL (4.38-5.82); RED CELL DISTRIBUTION WIDTH 15.6 % (9.4-14.8)
[2019-07-17 12:00] VITALS: BP 122/77
[2019-07-17 12:10] VITALS: BP 122/77
[2019-07-17] MEDS: MICAFUNGIN 100 MG in SODIUM CHLORIDE 0.9% 100 ML IV SCH (14:08)
[2019-07-17] MEDS: ENOXAPARIN 40 MG/0.4 ML SQ SCH (17:57)
[2019-07-17] MEDS: POTASSIUM CHLORIDE 40 MEQ in SODIUM CHLORIDE 0.45% 1,000 ML IV SCH (18:04)
[2019-07-17 18:40] VITALS: BP 128/76
[2019-07-17] MEDS: TEMAZEPAM 15 MG CAPSULE PO PRN (21:50)
[2019-07-18 01:00] VITALS: BP 135/82
[2019-07-18] MEDS: PIPERACILLIN/TAZO/PMX 4.5GM 100 ML IV SCH ×3 (02:49→17:31)
[2019-07-18] MEDS: OXYcodone/APAP 5/325MG TABLET PO PRN ×3 (02:49→17:41)
[2019-07-18] MEDS: METOPROLOL TARTRATE 50 MG TAB PO SCH ×2 (05:35→17:31)
[2019-07-18] MEDS: LORazepam 0.5MG TABLET PO PRN ×2 (06:42→19:57)
[2019-07-18 07:50] VITALS: BP 121/77
[2019-07-18] MEDS: MULTIVITS,STRESS FORMULA 1 TABLET PO SCH (08:14)
[2019-07-18] MEDS: CHOLECALCIFEROL 400 UNITS TABLET PO SCH (08:14)
[2019-07-18] MEDS: DRONABINOL 5 MG CAPSULE PO SCH ×2 (08:14→19:57)
[2019-07-18] MEDS: ASCORBIC ACID 500 MG TABLET PO SCH ×2 (08:14→16:28)
[2019-07-18] MEDS: POTASSIUM CHLORIDE 40 MEQ in SODIUM CHLORIDE 0.45% 1,000 ML IV SCH ×2 (08:43→22:33)
[2019-07-18] MEDS: MICAFUNGIN 100 MG in SODIUM CHLORIDE 0.9% 100 ML IV SCH (13:18)
[2019-07-18 14:22] VITALS: BP 123/78
[2019-07-18] MEDS: ENOXAPARIN 40 MG/0.4 ML SQ SCH (16:28)
[2019-07-18 18:22] VITALS: BP 132/80
[2019-07-18] MEDS: TEMAZEPAM 15 MG CAPSULE PO PRN (21:12)
[2019-07-19 01:33] VITALS: BP 119/76
[2019-07-19] MEDS: PIPERACILLIN/TAZO/PMX 4.5GM 100 ML IV SCH ×3 (02:37→18:12)
[2019-07-19 05:11] VITALS: BP 132/88
[2019-07-19] MEDS: LORazepam 0.5MG TABLET PO PRN ×2 (05:12→14:01)
[2019-07-19] MEDS: METOPROLOL TARTRATE 50 MG TAB PO SCH ×2 (05:12→17:28)
[2019-07-19 05:41] LABS: BASOPHILS # (AUTO) 0.04 x10^3/uL (0-0.1); BASOPHILS % (AUTO) 1 % (0-1); EOSINOPHILS # (AUTO) 0.39 x10^3/uL (0-0.4); EOSINOPHILS % (AUTO) 5 % (1-7); LYMPHOCYTES # (AUTO) 1.34 x10^3/uL (1-3.4); LYMPHOCYTES % (AUTO) 15 % (22-44); MD NO; MEAN CORPUSCULAR HGB CONC 33.7 g/dL (33.2-36.2); MEAN PLATELET VOLUME 6.7 fL (7.4-10.4); MONOCYTES # (AUTO) 0.57 x10^3/uL (0.2-0.8); MONOCYTES % (AUTO) 7 % (2-9); NEUTROPHILS % (AUTO) 73 % (42-75); PLATELET COUNT 517 x10^3/uL (130-400); RED BLOOD COUNT 3.91 x10^6/uL (4.38-5.82)
[2019-07-19 05:55] LABS: ALBUMIN 2.5 g/dL (3.4-5.0); ANION GAP 7 mmol/L (5-15); CHLORIDE 108 mmol/L (98-107)
[2019-07-19 07:18] VITALS: BP 134/84
[2019-07-19] MEDS: ASCORBIC ACID 500 MG TABLET PO SCH ×2 (09:00→16:31)
[2019-07-19] MEDS: MULTIVITS,STRESS FORMULA 1 TABLET PO SCH (09:00)
[2019-07-19] MEDS: CHOLECALCIFEROL 400 UNITS TABLET PO SCH (09:00)
[2019-07-19] MEDS: OXYcodone/APAP 5/325MG TABLET PO PRN ×2 (09:03→20:15)
[2019-07-19] MEDS: DRONABINOL 5 MG CAPSULE PO SCH ×2 (09:03→20:15)
[2019-07-19] MEDS ORDERED: OMNIPAQUE 350 MG/ML, 100ML BOTTLE ONE (11:35)
[2019-07-19] MEDS: MICAFUNGIN 100 MG in SODIUM CHLORIDE 0.9% 100 ML IV SCH (14:02)
[2019-07-19 15:54] VITALS: BP 133/78
[2019-07-19] MEDS: ENOXAPARIN 40 MG/0.4 ML SQ SCH (16:31)
[2019-07-19] MEDS: POTASSIUM CHLORIDE 40 MEQ in SODIUM CHLORIDE 0.45% 1,000 ML IV SCH (16:31)
[2019-07-19 18:23] VITALS: BP 115/65
[2019-07-19] MEDS: TEMAZEPAM 15 MG CAPSULE PO PRN (20:15)
[2019-07-20 00:04] VITALS: BP 120/75
[2019-07-20] MEDS: OXYcodone/APAP 5/325MG TABLET PO PRN ×3 (01:33→17:14)
[2019-07-20] MEDS: PIPERACILLIN/TAZO/PMX 4.5GM 100 ML IV SCH ×3 (02:17→17:46)
[2019-07-20] MEDS: LORazepam 0.5MG TABLET PO PRN ×3 (03:07→20:35)
[2019-07-20] MEDS: METOPROLOL TARTRATE 50 MG TAB PO SCH ×2 (05:59→17:13)
[2019-07-20] MEDS: POTASSIUM CHLORIDE 40 MEQ in SODIUM CHLORIDE 0.45% 1,000 ML IV SCH (06:19)
[2019-07-20 06:24] LABS: BASOPHILS # (AUTO) 0.05 x10^3/uL (0-0.1); BASOPHILS % (AUTO) 1 % (0-1); EOSINOPHILS # (AUTO) 0.46 x10^3/uL (0-0.4); EOSINOPHILS % (AUTO) 6 % (1-7); LYMPHOCYTES # (AUTO) 1.32 x10^3/uL (1-3.4); LYMPHOCYTES % (AUTO) 18 % (22-44); MD NO; MEAN CORPUSCULAR HEMOGLOBIN 30.1 pg (27.5-34.5); MEAN CORPUSCULAR HGB CONC 33.5 g/dL (33.2-36.2); MEAN CORPUSCULAR VOLUME 89.9 fL (81-97); MEAN PLATELET VOLUME 6.8 fL (7.4-10.4); MONOCYTES # (AUTO) 0.64 x10^3/uL (0.2-0.8); MONOCYTES % (AUTO) 9 % (2-9); NEUTROPHILS # (AUTO) 4.83 x10^3/uL (1.8-6.8); NEUTROPHILS % (AUTO) 66 % (42-75); PLATELET COUNT 469 x10^3/uL (130-400); RED BLOOD COUNT 3.83 x10^6/uL (4.38-5.82); RED CELL DISTRIBUTION WIDTH 16.3 % (9.4-14.8)
[2019-07-20 06:28] LABS: HCT (SEDRATE) 34.4 % (39.2-51.8)
[2019-07-20 06:31] LABS: ALANINE AMINOTRANSFERASE 56 U/L (12-78); ALBUMIN 2.7 g/dL (3.4-5.0); ANION GAP 6 mmol/L (5-15); C-REACTIVE PROTEIN, QUANT 0.13 mg/dL (0.02-0.49); CALCIUM 8.9 mg/dL (8.5-10.1); CHLORIDE 109 mmol/L (98-107); CREATININE 1.05 mg/dL (0.7-1.3)
[2019-07-20 06:33] LABS: ALKALINE PHOSPHATASE 83 U/L (45-117); BILIRUBIN,TOTAL 0.2 mg/dL (0.2-1.0); TOTAL PROTEIN 6.8 g/dL (6.4-8.2)
[2019-07-20 07:56] VITALS: BP 118/68
[2019-07-20] MEDS: DRONABINOL 5 MG CAPSULE PO SCH ×2 (08:29→20:35)
[2019-07-20] MEDS: CHOLECALCIFEROL 400 UNITS TABLET PO SCH (08:29)
[2019-07-20] MEDS: MULTIVITS,STRESS FORMULA 1 TABLET PO SCH (08:29)
[2019-07-20] MEDS: ASCORBIC ACID 500 MG TABLET PO SCH ×2 (08:29→17:13)
[2019-07-20] MEDS: MICAFUNGIN 100 MG in SODIUM CHLORIDE 0.9% 100 ML IV SCH (13:56)
[2019-07-20 14:22] VITALS: BP 116/76
[2019-07-20] MEDS: ENOXAPARIN 40 MG/0.4 ML SQ SCH (17:13)
[2019-07-20 19:02] VITALS: BP 136/80
[2019-07-20] MEDS: TEMAZEPAM 15 MG CAPSULE PO PRN (20:35)
[2019-07-21 01:05] VITALS: BP 123/79
[2019-07-21] MEDS: POTASSIUM CHLORIDE 40 MEQ in SODIUM CHLORIDE 0.45% 1,000 ML IV SCH ×2 (01:05→14:09)
[2019-07-21] MEDS: PIPERACILLIN/TAZO/PMX 4.5GM 100 ML IV SCH ×2 (02:30→10:39)
[2019-07-21] MEDS: OXYcodone/APAP 5/325MG TABLET PO PRN (05:06)
[2019-07-21] MEDS: METOPROLOL TARTRATE 50 MG TAB PO SCH ×2 (05:08→17:44)
[2019-07-21 06:00] VITALS: BP 123/77
[2019-07-21] MEDS: LORazepam 0.5MG TABLET PO PRN ×3 (06:20→22:10)
[2019-07-21] MEDS: MULTIVITS,STRESS FORMULA 1 TABLET PO SCH (09:05)
[2019-07-21] MEDS: ASCORBIC ACID 500 MG TABLET PO SCH ×2 (09:05→17:44)
[2019-07-21] MEDS: CHOLECALCIFEROL 400 UNITS TABLET PO SCH (09:05)
[2019-07-21] MEDS: DRONABINOL 5 MG CAPSULE PO SCH ×2 (09:06→19:59)
[2019-07-21] MEDS: LEVOFLOXACIN 750 MG TABLET PO SCH (12:23)
[2019-07-21] MEDS: FLUCONAZOLE 200 MG TABLET PO SCH (12:23)
[2019-07-21] MEDS: AMOXICILLIN/CLAV 875-125MG TABLET PO SCH ×2 (12:23→20:00)
[2019-07-21] MEDS: LEVOFLOXACIN/PMX 750MG/150ML 150 ML IV SCH (12:27)
[2019-07-21 13:08] VITALS: BP 118/84
[2019-07-21] MEDS ORDERED: MICAFUNGIN 100 MG in SODIUM CHLORIDE 0.9% 100 ML IV SCH (14:00)
[2019-07-21] MEDS: ENOXAPARIN 40 MG/0.4 ML SQ SCH (17:43)
[2019-07-21 19:02] VITALS: BP 106/75
[2019-07-21] MEDS: TEMAZEPAM 15 MG CAPSULE PO PRN (22:10)
[2019-07-22 00:14] VITALS: BP 118/71
[2019-07-22] MEDS: AMOXICILLIN/CLAV 875-125MG TABLET PO SCH ×2 (03:46→11:27)
[2019-07-22] MEDS: OXYcodone/APAP 5/325MG TABLET PO PRN ×2 (03:47→11:28)
[2019-07-22] MEDS: METOPROLOL TARTRATE 50 MG TAB PO SCH (05:09)
[2019-07-22] MEDS: POTASSIUM CHLORIDE 40 MEQ in SODIUM CHLORIDE 0.45% 1,000 ML IV SCH (05:36)
[2019-07-22 06:14] LABS: BASOPHILS # (AUTO) 0.06 x10^3/uL (0-0.1); BASOPHILS % (AUTO) 1 % (0-1); EOSINOPHILS # (AUTO) 0.32 x10^3/uL (0-0.4); EOSINOPHILS % (AUTO) 3 % (1-7); LYMPHOCYTES # (AUTO) 1.48 x10^3/uL (1-3.4); LYMPHOCYTES % (AUTO) 15 % (22-44); MD NO; MEAN CORPUSCULAR HEMOGLOBIN 30.4 pg (27.5-34.5); MEAN CORPUSCULAR HGB CONC 33.7 g/dL (33.2-36.2); MEAN CORPUSCULAR VOLUME 90.2 fL (81-97); MEAN PLATELET VOLUME 6.8 fL (7.4-10.4); MONOCYTES # (AUTO) 0.61 x10^3/uL (0.2-0.8); MONOCYTES % (AUTO) 6 % (2-9); NEUTROPHILS # (AUTO) 7.15 x10^3/uL (1.8-6.8); NEUTROPHILS % (AUTO) 74 % (42-75); PLATELET COUNT 468 x10^3/uL (130-400); RED BLOOD COUNT 4.09 x10^6/uL (4.38-5.82); RED CELL DISTRIBUTION WIDTH 16.6 % (9.4-14.8)
[2019-07-22 07:02] VITALS: BP 120/77
[2019-07-22] MEDS: LORazepam 0.5MG TABLET PO PRN (07:15)
[2019-07-22] MEDS: ASCORBIC ACID 500 MG TABLET PO SCH (07:15)
[2019-07-22] MEDS: LEVOFLOXACIN 750 MG TABLET PO SCH (07:15)
[2019-07-22] MEDS: DRONABINOL 5 MG CAPSULE PO SCH (09:35)
[2019-07-22] MEDS: MULTIVITS,STRESS FORMULA 1 TABLET PO SCH (09:36)
[2019-07-22] MEDS: CHOLECALCIFEROL 400 UNITS TABLET PO SCH (09:36)
[2019-07-22] MEDS ORDERED: LEVO750T26 PO (09:56)
[2019-07-22] MEDS ORDERED: AMOX1TAB12 PO (09:56)
[2019-07-22] MEDS ORDERED: FLUC200T PO (09:56)
[2019-07-22] MEDS: FLUCONAZOLE 200 MG TABLET PO SCH (11:28)
[2019-07-22 12:29] VITALS: BP 110/72
[2019-07-22] MEDS: LEVOFLOXACIN/PMX 750MG/150ML 150 ML IV SCH (14:00)
== END 2019-07-22 14:42 | disposition home or self-care (01) | DRG 329 ==
LOC: ED 15:59 → EDIP 20:55 → 4NE 20:57 → 4WST 07-02 00:26
PROVIDERS: ADMIT Internal Medicine; ATTEND Family Medicine
PROC: 0D1N0Z4 Bypass Sigmoid Colon to Cutaneous, Open Approach (ICD-10-PCS; 2019-07-03)
PROC: 0DB80ZZ Excision of Small Intestine, Open Approach (ICD-10-PCS; 2019-07-03)
PROC: 0DBN0ZZ Excision of Sigmoid Colon, Open Approach (ICD-10-PCS; principal; 2019-07-03 07:30)
DX: K57.20 Diverticulitis of large intestine with perforation and abscess without bleeding (principal); K65.0 Generalized (acute) peritonitis; K65.1 Peritoneal abscess; M86.9 Osteomyelitis, unspecified; I47.1 Supraventricular tachycardia; K56.600 Partial intestinal obstruction, unspecified as to cause; R73.9 Hyperglycemia, unspecified; F17.210 Nicotine dependence, cigarettes, uncomplicated; D72.828 Other elevated white blood cell count; E87.6 Hypokalemia; D64.9 Anemia, unspecified; B95.2 Enterococcus as the cause of diseases classified elsewhere; Z82.49 Family history of ischemic heart disease and other diseases of the circulatory system; Z82.3 Family history of stroke; Z79.899 Other long term (current) drug therapy
CPT/HCPCS: 36415; 36573; 74177; 80048; 80053; 80069; 82962; 83605; 83690; 83735; 84100; 84439; 84443; 85025; 85651; 86140; 87040; 87070; 87075; 87077; 87106; 87186; 87205; 88307; 93005; 96361; 96374; 96375; C1729; G0378; J0153; J1170; J1650; J2248; J2250; J2405; J2543; J2550; J2704; J2710; J3010; J3480; Q0167; Q9967; C1751; J1450; J2060; J2370; J7030; J7120